=== PATIENT | female | born 1990 | race Hispanic/Latino ===

== ENCOUNTER 2019-05-29 11:50 | Emergency (ER) | payer MEDICAID, OTHER ==
--- NOTE | 2019-05-29 12:14 | Emergency Department Report ---
Blank Doc - Documentation Documentation: This is a 29-year-old female that presents with right groin redness and swelli ng. This initial assessment/diagnostic orders/clinical plan/treatment(s) is/are subject to change based on patient's health status, clinical progression and re- assessment by fellow clinical providers in the ED. Further treatment and workup at subsequent clinical providers discretion. Patient/guardians urged not to elope from the ED as their condition may be serious if not clinically assessed and managed. Initial orders include: 1- Patient sent to [facility] for further evaluation and treatment
[2019-05-29] MEDS ORDERED: IBUPROFEN PO ONE (15:25)
[2019-05-29 16:51] VITALS: BP 117/52
--- NOTE | 2019-05-29 16:58 | Emergency Department Report ---
Abscess Boil HPI - HPI Chief Complaint: Skin/Abscess/Foreign Body Stated Complaint: POSS STAPH/CELLULITUS Time Seen by Provider: 05/29/19 12:13 Duration: 3 Days Location: Other ([facility]) History: Yes Pain, No Fever, No Purulent Drainage, No Numbness, No Foreign Body, No Previous History Home Medications: Previous Rx's Medication Instructions Recorded Last Taken Type Clindamycin [Clindamycin CAP] 300 mg PO Q8H #21 cap 05/29/19 Unknown Rx Ibuprofen [Motrin 600 MG tab] 600 mg PO Q8H PRN #20 tablet 05/29/19 Unknown Rx Allergies/Adverse Reactions: Allergies Allergy/AdvReac Type Severity Reaction Status Date / Time hydrocodone Allergy Hives Verified 05/29/19 11:57 ED Review of Systems ROS: Stated complaint: POSS STAPH/CELLULITUS Other details as noted in HPI Comment: All other systems reviewed and negative ED Past Medical Hx - Past Medical History Previous Medical History?: Yes Additional medical history: Chronic kidney disease. - Surgical History Past Surgical History?: Yes Additional Surgical History: C section - Social History Smoking Status: Current Every Day Smoker Substance Use Type: None - Medications Home Medications: Home Medications Medication Instructions Recorded Confirmed Last Taken Type Clindamycin [Clindamycin CAP] 300 mg PO Q8H #21 cap 05/29/19 Unknown Rx Ibuprofen [Motrin 600 MG tab] 600 mg PO Q8H PRN #20 tablet 05/29/19 Unknown Rx ED Abscess Boil Physical Exam - Exam General: Vital signs noted. No distress. Alert and acting appropriately. Front/Back of Body, Lg (Color): 1 - mons pubis, cellulitis with cental fluctuance I & D Note - I & D Note I & D Note: The area was ultrasounded at bedside did show that she had a very small pocket of purulent material. It skin was prepped sterilely with Betadine. Used 5 mL of lidocaine 1% anesthetized area. 11 blade was used to make an incision made and purulent material was drained. There was probed with hemostats and packed with quarter-inch iodoform gauze. Patient tolerated procedure well. ED Course Vital Signs 05/29/19 05/29/19 12:13 16:37 Temperature 99.1 F 99.1 F Pulse Rate 107 H 91 H Respiratory 18 15 Rate Blood Pressure 117/52 Blood Pressure 137/81 [Left] O2 Sat by Pulse 96 99 Oximetry Critical care attestation.: If time is entered above; I have spent that time in minutes in the direct care of this critically ill patient, excluding procedure time. ED Disposition Clinical Impression: Abscess or cellulitis of groin Disposition: - TO HOME OR SELFCARE Is pt being admited?: No Does the pt Need Aspirin: No Condition: Stable Instructions: Abscess (ED), Pelvic Inflammatory Disease (ED), Cellulitis (ED) Additional Instructions: Please remove the gauze from the wound in 2-3 days. Referrals: PRIMARY CARE, [Primary Care Provider] - 3-5 Days Time of Disposition: 16:57
== END 2019-05-29 17:06 | disposition home or self-care (01) ==
LOC: ED 11:50
DX: L02.214 Cutaneous abscess of groin (principal); Z88.6 Allergy status to analgesic agent; N18.9 Chronic kidney disease, unspecified; F17.200 Nicotine dependence, unspecified, uncomplicated
CPT/HCPCS: 99282